=== PATIENT | female | born 1960 | race Caucasian/White ===

== ENCOUNTER 2017-07-11 05:29 | Day surgery (SDC) | payer OTHER ==
[~2017-07-11] VITALS: Ht 157.5 cm; Wt 102.5 kg
--- NOTE | ~2017-07-11 | EKG ---
[address] [address] ELECTROCARDIOGRAM REPORT Name: CHENG TAYLOR Room #: 150-4 [facility]#: [id number] Admission: 07/11/17 Attend Phys: Binh Cueva MD Discharge: Date of : 56 Report #: [id number] THIS REPORT FOR: //name// [facility] Test Date: 2017-07-11 Test Time: 13:35:33 Pat Name: CHENG TAYLOR Department: Room: 150 4 Gender: F Senior Sales Operations Manager: RM : 1960 Requested By: Binh Cueva Order Number: [id number] MD: Abel Callejas Measurements Intervals [place] Rate: 102 P: 36 ND: 143 QRS: -30 QRSD: 92 T: 59 QT: 357 QTc: 466 Interpretive Statements Sinus tachycardia Left axis deviation Poor R wave progression Cannot rule out inferior infarct, age indeterminate Minimal ST depression, lateral leads No previous ECG available for comparison Electronically Signed On 07-12-2017 7:25:12 CDT by Abel Callejas [email or web address] <ELECTRONICALLY SIGNED> By: Abel Callejas MD, [facility] 07/12/17 07 34 34 Abel Callejas MD, [facility] /EPI
--- NOTE | ~2017-07-11 | O ---
[facility] [place] [address] [address] [place] [address] OPERATIVE REPORT Name: CHENG TAYLOR Room #: DEP [facility] Venus.#: [id number] Admission: 07/11/17 Attend Phys: Binh Cueva MD Discharge: 07/11/17 Date of : 56 Report #: [id number] THIS REPORT FOR: //name// CC: FAM unknown Binh Cueva DATE OF SERVICE: 07/11/2017 PREOPERATIVE DIAGNOSIS: Left knee medial meniscus tear. POSTOPERATIVE DIAGNOSES: 1. Left knee posterior horn medial meniscus tear. 2. Posterior horn root tear of the lateral meniscus. 3. Grade 3 chondromalacia medial femoral condyle. 4. Grade 3 chondromalacia of the patella. PROCEDURES: 1. Left knee arthroscopy with partial medial and lateral meniscectomy. 2. Chondroplasty of medial femoral condyle and patella. SURGEON: Binh Cueva MD FIRE EXTINGUISHER INSTALLER: Connie Bonilla PA-C. ANESTHESIA: LMA. TOURNIQUET TIME: 17 minutes. ESTIMATED BLOOD LOSS: 10 mL COMPLICATIONS: None. SPECIMENS: None. CONDITION UPON LEAVING THE OPERATING ROOM: Stable. INDICATIONS FOR PROCEDURE: The patient is a 56-year-old female, who has had medial-sided left knee pain. She had an MRI scan, shown to have a tear of the medial meniscus. After discussion with her, she elected for left knee arthroscopy with partial medial meniscectomy with debridement as needed. DESCRIPTION OF PROCEDURE: Risks, benefits, alternatives, complications were discussed in detail with the patient including, but not limited to risk of anesthesia, risk of damage to nerves, arteries, blood vessels, risk for infection, bleeding, risk for continued knee pain and need for reoperation. Informed consent was obtained from the patient. The left knee was appropriately [facility] [address] [place] [address] OPERATIVE REPORT Name: CHENG TAYLOR Room #: DEP [facility] Cristofer#: [id number] Admission: 07/11/17 Attend Phys: Binh Cueva MD Discharge: 07/11/17 Date of : 56 Report #: [id number] marked in the preoperative holding area. IV Ancef was given for preoperative antibiotics. She was brought to the operating room and placed in supine position on operating room table. LMA anesthesia was induced without complication. Tourniquet was placed on left thigh. Left lower extremity was prepped and draped in normal sterile fashion. Timeout was performed properly identifying the patient, the procedure as well as the instrumentation, all in the operating room were in agreement. Left lower extremity was exsanguinated, tourniquet was inflated. Tourniquet time was 17 minutes. Standard anterolateral portal was established with #11 blade through the skin. Arthroscope was introduced into the patellofemoral compartment and diagnostic arthroscopy was undertaken. Patellofemoral compartment was visualized and found to have grade 3 chondromalacia of the patella. Medial gutter was visualized and found to be without pathology. Medial compartment was visualized and medial portal was established under arthroscopic visualization. Probe was introduced in the medial compartment and there was noted to be a tear of the posterior horn of the medial meniscus and this was trimmed back to a stable rim with arthroscopic biter and smoothed back with a shaver. There was also a grade 3 chondromalacia of the medial femoral condyle and chondroplasty of this area was performed. Notch was visualized and found to have an intact anterior cruciate ligament. Lateral compartment was visualized and found to have fraying of the root of the posterior horn of the lateral meniscus that was smoothed back with oscillating shaver. Scope was placed back in the patellofemoral compartment and chondroplasty of the patella was performed. There was also grade 3 chondromalacia of the trochlear groove. After this, all fluid was drained from the knee. Knee was injected with 10 mL of 0.5% Marcaine. Incision was closed with 3-0 nylon. Soft dressing of Adaptic, 4 x 4, Webril, David wrap were applied. The patient tolerated this procedure well and went to recovery room under care of anesthesia postoperatively. <ELECTRONICALLY SIGNED> By: Binh Cueva MD 07/24/17 1148 1827 1854 Binh Cueva MD /nt
[~2017-07-11 05:29] MED LIST: CENTRUM SILVER1 EAC4 PO; FLEXERIL PO; GLUCOPHAGE XR500 MG PO; HYDROCODON-ACE1 EAC8 PO; LISINOPRIL5 MG PO; SYNTHROID50 MCG PO; VENTOLIN HFA 1818 GM INH
[2017-07-11 13:55] VITALS: BP 162/92
[2017-07-11] MEDS ORDERED: HYDROCODONE-AP1 EAC6 PO (16:00)
[2017-07-11 16:12] VITALS: BP 162/92
== END 2017-07-11 17:05 | disposition home or self-care (01) ==
LOC: OR 05:29 → TBA 05:30 → OR 06:50
DX: M23.322 Other meniscus derangements, posterior horn of medial meniscus, left knee (principal); M23.252 Derangement of posterior horn of lateral meniscus due to old tear or injury, left knee; M94.262 Chondromalacia, left knee; I10 Essential (primary) hypertension; E11.9 Type 2 diabetes mellitus without complications; E03.9 Hypothyroidism, unspecified; Z90.710 Acquired absence of both cervix and uterus; Z98.890 Other specified postprocedural states; Z88.0 Allergy status to penicillin; Z88.2 Allergy status to sulfonamides; Z88.8 Allergy status to other drugs, medicaments and biological substances; Z79.899 Other long term (current) drug therapy; Z79.891 Long term (current) use of opiate analgesic
CPT/HCPCS: 50010; 50101; 50405; 51038; 54170; 56526; 57103; 62110; 62900; 70005

== ENCOUNTER 2018-03-25 06:15 | Inpatient (IN) | payer OTHER ==
[2018-03-19 09:20] LABS: HEMATOCRIT 40.5 % (37.0-47.0); HEMOGLOBIN 13.8 gm/dL (12.0-15.0); MCH 30.6 pg (26.0-34.0); MCHC 34.1 g/dL (28.0-37.0); MCV 89.7 fL (80.0-100.0); RBC 4.51 mil/uL (4.20-5.00); RDW 13.1 % (10.5-14.5); WBC 7.5 thou/uL (4.0-11.0)
[2018-03-19 09:29] LABS: ALBUMIN 3.8 g/dL (3.4-5.0); CALCIUM 9.7 mg/dL (8.5-10.1); CREATININE 1.1 mg/dL (0.6-1.0); POTASSIUM 4.5 mmol/L (3.5-5.1)
[2018-03-19 09:32] LABS: PROTIME 10.4 Seconds (9.3-11.4)
[2018-03-19 09:33] LABS: URINE BILIRUBIN NEGATIVE (Negative); URINE BLOOD NEGATIVE (Negative); URINE CLARITY CLEAR; URINE COLOR YELLOW; URINE GLUCOSE-RANDOM* NEGATIVE (Negative); URINE KETONES NEGATIVE (Negative); URINE NITRITE-REFLEX NEGATIVE (Negative); URINE PROTEIN (DIPSTICK) NEGATIVE (Negative); URINE SPECIFIC GRAVITY <= 1.005 (1.005-1.035); URINE UROBILINOGEN 0.2 E.U./dl (0.2-1.0)
[2018-03-19 09:34] LABS: URINE LEUKOCYTES-REFLEX 1+ (Negative)
[2018-03-19 09:42] LABS: SQUAMOUS 0-3 Few /LPF (0-3)
[2018-03-19 09:43] LABS: BACTERIA-REFLEX 1-9 Few /HPF (None Seen); CASTS None Seen /LPF (None Seen); CRYSTALS None Seen /LPF (None Seen); URINE RBC None Seen /HPF (0-2); URINE WBC-REFLEX 0-5 Rare /HPF (0-5)
[~2018-03-25] VITALS: Ht 157.5 cm; Wt 88.5 kg
--- NOTE | ~2018-03-25 | PATH ---
[facility] [address] [place] [address] PATHOLOGY RPT PROCEDURE Name: CHENG TAYLOR Room #: 432-P DIS IN M.R.#: [id number] Admission: 03/25/18 Date of : 56 Discharge: 03/26/18 Report #: [id number] Path Case #: [id number] [facility] Accession Number: [id number] . 01 Material submitted: . LEFT FEMORAL HEAD . 01 Clinical history: . Left hip OA . 02 Diagnosis: Bone, left femoral head, total hip replacement: - Marked erosion as well as areas of eburnation in addition to reactive chondro-osseous tissue, consistent with the provided history of osteoarthritis. - Marrow space showing trilineage hematopoiesis. . (IUV:mml; 03/27/18) QLM/03/27/2018 . 02 Electronically signed: . Idalia Vaughn MD, Pathologist NPI- [id number] . 01 Gross description: . Received in formalin labeled "Cheng Taylor, left femoral head," is a femoral head measuring 4.1 x 4.1 x 5.4 cm in greatest dimensions. The articular surface is smooth to granular and pale koenig to light brown in appearance, displaying no gross evidence of eburnation. Sectioning reveals cancellous, pale yellow to largely hemorrhagic cut surfaces. The specimen is submitted representatively in cassette A1, following decalcification. (DAC; 03/26/2018) XDC/XDC . 02 Pathologist provided ICD-10: M16.12 . 02 CPT . 042256, 436000 Specimen Comment: A courtesy copy of this report has been sent to Specimen Comment: [phone], . Specimen Comment: Report sent to / DR PLATT Specimen Comment: A duplicate report has been generated due to demographic updates. Performed at: [address] [address] PATHOLOGY RPT PROCEDURE Name: CHENG TAYLOR Room #: [address] [place] [address] IN M.R.#: [id number] Admission: 03/25/18 Date of : 56 Discharge: 03/26/18 Report #: [id number] Path Case #: [id number] [address] [facility] [address], [place], [place] [id number] MD Mando Mello MD Phone: [phone] Performed at: [address] [id number] MD Idalia Vaughn MD Phone: [phone]
--- NOTE | ~2018-03-25 | O ---
[facility] [address] [address] [place] [address] OPERATIVE REPORT Name: CHENG TAYLOR Room #: 150-5 ADM IN M.R.#: [id number] Admission: 03/25/18 Attend Phys: Binh Cueva MD Discharge: Date of : 56 Report #: [id number] THIS REPORT FOR: //name// CC: QUINN PLATT Physician staff Binh Cueva DATE OF SERVICE: 03/25/2018 PREOPERATIVE DIAGNOSIS: Left femoral head avascular necrosis. POSTOPERATIVE DIAGNOSIS: Left femoral head avascular necrosis. PROCEDURE: Left total hip arthroplasty. SURGEON: Binh Cueva MD. BARREL LOADER AND CLEANER: Connie Bonilla PA-C. INDICATIONS FOR BARREL LOADER AND CLEANER: Throughout the case, extensive retraction and manipulation of the hip was required. This was afforded to me by my ophthalmic surgical assistant. This included dislocation and reduction of the hip. ANESTHESIA: General endotracheal. IMPLANTS: Martin [employer] Nephew size 12 high offset Synergy press fit stem, a size 48 R3 acetabular cup with one acetabular screw and a size 32 -3 Oxinium head. ESTIMATED BLOOD LOSS: 50 mL. COMPLICATIONS: None. SPECIMENS: None. CONDITION UPON LEAVING THE OPERATING ROOM: Stable. 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 She had failed conservative measures for this and after discussion with her, she elected for left total hip arthroplasty. DESCRIPTION OF PROCEDURE: Risks, benefits, alternatives, complications were discussed in detail with the patient including but not limited to risk of anesthesia, risk of damage to nerves, arteries, blood vessels, risk for infection, bleeding, risk for leg length discrepancy, instability and need for reoperation. Informed consent was obtained from the patient. Left hip was [facility] [address] [place] [address] OPERATIVE REPORT Name: CHENG TAYLOR Room #: 150-5 ADM IN M.R.#: [id number] Admission: 03/25/18 Attend Phys: Binh Cueva MD Discharge: Date of : 56 Report #: [id number] appropriately marked in the preoperative holding area. IV clindamycin was given for preoperative antibiotics. She was brought to the operating room and placed in supine position on operating room table. General endotracheal anesthesia was induced without complication. She was then placed in the right lateral decubitus position with the left hip uppermost. Left hip and lower extremity were prepped and draped in normal sterile fashion. Timeout was performed properly identifying the patient and procedure as well as the instrumentation and implants. All in the operating room were in agreement. Standard posterior approach to the hip was made with 10 blade through the skin. Dissection was taken down sharply to the fascia and deep flaps were developed medially and laterally. Fresh 10 blade was used to make a fascial incision. This was taken proximally and distally with curved Sheehan scissor. Charnley retractor was placed and trochanteric bursa was taken down with Bovie cautery. Piriformis tendon was identified, tagged and taken down with Bovie. Short external rotators were also taken down with Bovie cautery. Capsulotomy was made and capsule ends were tagged for later repair. The hip was dislocated and a femoral neck cut 1 cm proximal to lesser trochanter based on preoperative templating was made with the oscillating saw. Femoral head was removed and sent to pathology. Deep acetabular retractors were placed and the labrum was removed sharply. Pulvinar was removed with Bovie cautery. Acetabulum was then sequentially reamed up to a size 48, at which point, there was excellent bleeding cancellous bone. A final size 48 R3 acetabular cup was placed and seated. One acetabular screw was placed for backup fixation. Polyethylene liner for 32 head was placed. Attention was then turned to the femur. This was reamed and broached up to a size 12, at which point the size 12 broach was stable. This was trialed with a high offset neck and a 32+0 head. Hip was reduced, taken through range of motion, found to be stable, found to have equal leg lengths. Hip was dislocated. The broach was removed, and a final size 12 high offset Synergy press fit stem was placed. This did not seat quite as far as the broach did, yet was stable. This was thus trialed with a 32-3 head. Hip was reduced, taken through range of motion, found to be stable, found to have equal leg lengths. Hip was dislocated one last time, trial head was removed, and a final size 32 -3 Oxinium head was placed. Hip was reduced, taken through range of motion, found to be stable, found to have equal leg lengths. Hip was thoroughly irrigated with normal saline. A periarticular injection consisting of morphine, ropivacaine, epinephrine and Toradol was placed around the hip joint capsule. A gram of vancomycin was placed deep in the joint. The capsule and piriformis were repaired with 0 FiberWire. Fascia was closed with 0 Vicryl, skin was closed with 2-0 Vicryl, 3-0 Monocryl. Dermabond and a RAVI dressing were applied. The patient tolerated this procedure well and went to recovery room under care of Anesthesia postoperatively. <ELECTRONICALLY SIGNED> By: Binh Cueva MD 03/25/18 1713 1455 1614 Binh Cueva MD /nt
[~2018-03-25 06:15] MED LIST changes: +ALEVE220 MG PO; +CALCIUM 500 +1 EAC5 PO; +HYDROCODONE-AP1 EAC6 PO; +MAGOX 400400 MG PO
[2018-03-25 12:24] VITALS: BP 136/49
[2018-03-25 20:35] VITALS: BP 118/72
[2018-03-26 06:45] LABS: HEMATOCRIT 34.2 % (37.0-47.0); HEMOGLOBIN 11.8 gm/dL (12.0-15.0); MCH 30.6 pg (26.0-34.0); MCHC 34.5 g/dL (28.0-37.0); MCV 88.7 fL (80.0-100.0); RBC 3.85 mil/uL (4.20-5.00); RDW 12.9 % (10.5-14.5); WBC 16.1 thou/uL (4.0-11.0)
[2018-03-26] MEDS ORDERED: NEURONTIN 300300 M1 PO (12:25)
[2018-03-26] MEDS ORDERED: TRI-BUFFERED A325 M1 PO (12:25)
[2018-03-26 13:58] VITALS: BP 105/71
[2018-03-26 15:47] VITALS: BP 105/71
[2018-03-26 15:49] VITALS: BP 105/71
== END 2018-03-26 14:46 | disposition home or self-care (01) | DRG 470 ==
LOC: PRE 06:15 → TBA 07:17 → PRE 12:18 → 4E 17:35
PROVIDERS: Orthopaedic Surgery
PROC: 0SRB06A Replacement of Left Hip Joint with Oxidized Zirconium on Polyethylene Synthetic Substitute, Uncemented, Open Approach (ICD-10-PCS; principal; 2018-03-25)
DX: M87.852 Other osteonecrosis, left femur (principal); Z79.82 Long term (current) use of aspirin; Z79.899 Other long term (current) drug therapy; Z88.0 Allergy status to penicillin; Z88.2 Allergy status to sulfonamides; Z88.8 Allergy status to other drugs, medicaments and biological substances
CPT/HCPCS: 10783; 50010; 50101; 50382; 50414; 51771; 53000; 53078; 53368; 54118; 56524; 56527; 56528; 56530; 57095; 57103; 62110; 62900; 70005

== ENCOUNTER 2018-11-13 05:27 | Inpatient (IN) | payer OTHER ==
[2018-10-30 12:47] LABS: HEMATOCRIT 41.3 % (37.0-47.0); MCH 29.4 pg (26.0-34.0); MCHC 33.9 g/dL (28.0-37.0); RBC 4.75 mil/uL (4.20-5.00); RDW 13.2 % (10.5-14.5); WBC 8.2 thou/uL (4.0-11.0)
[2018-10-30 12:48] LABS: URINE BILIRUBIN NEGATIVE (Negative); URINE BLOOD NEGATIVE (Negative); URINE CLARITY CLEAR; URINE COLOR YELLOW; URINE GLUCOSE-RANDOM* NEGATIVE (Negative); URINE KETONES NEGATIVE (Negative); URINE LEUKOCYTES-REFLEX TRACE (Negative); URINE NITRITE-REFLEX NEGATIVE (Negative); URINE PROTEIN (DIPSTICK) NEGATIVE (Negative); URINE SPECIFIC GRAVITY <= 1.005 (1.005-1.035); URINE UROBILINOGEN 0.2 E.U./dl (0.2-1.0)
[2018-10-30 13:02] LABS: ALBUMIN 4.1 g/dL (3.4-5.0); CALCIUM 9.8 mg/dL (8.5-10.1)
[2018-10-30 13:03] LABS: PROTIME 10.2 Seconds (9.3-11.4)
--- NOTE | 2018-11-03 17:49 | EKG ---
[facility] [place] [address] [place] [address] ELECTROCARDIOGRAM REPORT Name: CHENG TAYLOR Room #: PRE IN ..#: [id number] ������������������ Admission: ������������������ Attend Phys: Binh Cueva MD Discharge: ������������������ Date of : 56 Report #: [id number] ����������������������������������������������������������������� [id number] THIS REPORT FOR: //name// [facility] Test Date: 2018-10-30 Test Time: 12:52:50 Pat Name: CHENG TAYLOR Department: Room: Gender: F Pan Helper: kitty : 1960 Requested By: Binh Cueva Order Number: [id number] MD: Abel Callejas Measurements Intervals [place] Rate: 67 P: 24 MN: 157 QRS: -19 QRSD: 99 T: 29 QT: 430 QTc: 454 Interpretive Statements Sinus rhythm Possible Inferior infarct, old Nonspecific T wave abnormality Compared to ECG 07/11/2017 13:35:33 Sinus tachycardia no longer present ST and T wave abnormality is less pronounced Electronically Signed On 11-03-2018 17:49:43 CDT by Abel Callejas [email or web address] ��������������������������������������������� <ELECTRONICALLY SIGNED> ���������������������������������������� By: Abel Callejas MD, [facility] ��������������������������������������������� 11/03/18 1749 1252 1252 Abel Callejas MD, FAC /EPI
[~2018-11-13] VITALS: Ht 157.5 cm; Wt 92.1 kg
--- NOTE | ~2018-11-13 | O ---
[facility] [place] [address] [place] [address] OPERATIVE REPORT Name: CHENG TAYLOR Room #: 432-P [facility] IN M.R.#: [id number] Admission: 11/13/18 ������������������ Attend Phys: Binh Cueva MD Discharge: ������������������ Date of : 56 Report #: [id number] THIS REPORT FOR: //name// CC: Binh Grajeda DATE OF SERVICE: 11/13/2018 PREOPERATIVE DIAGNOSIS: Right hip osteoarthritis with avascular necrosis. POSTOPERATIVE DIAGNOSIS: Right hip osteoarthritis with avascular necrosis. PROCEDURE: Right total hip arthroplasty. SURGEON: Binh Cueva MD. CLOSING AGENT: Connie Bonilla PA-C. INDICATIONS FOR CLOSING AGENT: Throughout the case, extensive retraction and manipulation of the hip was required. This was afforded to me by my daycare assistant. ANESTHESIA: General. IMPLANTS: Martin [employer] Nephew size 11 high offset Synergy press fit stem, a size 48 R3 acetabular cup with one acetabular screw and a size 32+0 Oxinium head. ESTIMATED BLOOD LOSS: 100 mL. COMPLICATIONS: None. SPECIMENS: None. CONDITION UPON LEAVING THE OPERATING ROOM: Stable. INDICATIONS FOR PROCEDURE: The patient is a 58-year-old female with right hip avascular necrosis. She had failed conservative treatment for this and after discussion with her, she elected for right total hip arthroplasty. DESCRIPTION OF PROCEDURE: Risks, benefits, alternatives, complications were discussed in detail with the patient including but not limited to risk of anesthesia; risk of damage to nerves, arteries, blood vessels; risk for infection, bleeding; risk for leg length discrepancy, instability and need for reoperation. Informed consent was obtained from the patient. The right hip was appropriately marked in the preoperative holding area. IV Ancef was given for preoperative antibiotics. She was brought to the operating room and placed in supine position on the operating room table. General anesthesia was induced [address] [address] OPERATIVE REPORT Name: CHENG TAYLOR Room #: 432-P [facility] IN M.R.#: [id number] Admission: 11/13/18 ������������������ Attend Phys: Binh Cueva MD Discharge: ������������������ Date of : 56 Report #: [id number] without complication. She was placed on the left lateral decubitus position with the right hip uppermost. Right hip and lower extremity were prepped and draped in normal sterile fashion. Timeout was performed properly identifying the patient, procedure as well as the instrumentation and implants. All in the operating room were in agreement. Standard posterior approach to the hip was made with 10 blade through the skin. Dissection was taken down to the fascia with Bovie cautery. Cobian elevator was used to clean off the fascia. Fresh 10 blade was used to make a fascial incision. This was taken proximally and distally with curved Sheehan scissor. Charnley retractor was placed. Trochanteric bursa was taken down with Bovie cautery. Piriformis tendon was identified, tagged and taken down with Bovie. Short external rotators were also taken down with Bovie cautery. Capsulotomy was made and capsule ends were tagged for later repair. Hip was dislocated and a femoral neck cut was made 1 cm proximal to lesser trochanter based on preoperative templating. The femoral head was removed. Deep acetabular retractors were placed. Labrum was removed sharply. Pulvinar was removed with Bovie cautery. Acetabulum was then sequentially reamed up to a size 48 at which point, there was excellent bleeding cancellous bone. This was trialed with a 47 socket and found to have a good fit. A final size 48 R3 acetabular cup was placed and seated. One acetabular screw was placed for backup fixation and a polyethylene liner for 32 head was placed. Attention was turned to the femur. This was reamed and broached up to a size 11, at which point, the size 11 broach was stable. This was trialed with a high offset neck with a 32+0 head. Hip was reduced, taken through range of motion, found to be stable, found to have equal leg lengths. Hip was dislocated. The broach was removed and final size 11 high offset Synergy press fit stem was placed and seated. This was trialed again with a 32+0 head. Hip was reduced, taken through range of motion, found to be stable, found to have equal leg lengths. Hip was reduced one last time and a final size 32+0 Oxinium head was placed. Hip was reduced, taken through range of motion, found to be stable, found to have equal leg lengths. Hip was thoroughly irrigated with normal saline. A periarticular injection consisting of morphine, ropivacaine, epinephrine and Toradol was placed around the hip joint capsule. A gram of vancomycin was placed deep in the joint. The capsule and piriformis were repaired with 0 FiberWire. Fascia was closed with 0 Vicryl. Skin was closed with 2-0 Vicryl and 3-0 Monocryl. Dermabond and a RAVI dressing was applied. The patient tolerated this procedure well and went to the recovery room under care of anesthesia postoperatively. ��������������������������������������������� ���������������������������������������� By: ��������������������������������������������� 1227 1322 Binh Cueva MD /nt
[~2018-11-13 05:27] MED LIST changes: +HAIR, SKIN & N1 EAC3 PO; +NEURONTIN 300300 M1 PO; +TRAMADOL 50 MG50 MG PO; +TRI-BUFFERED A325 M1 PO
[2018-11-13 14:10] VITALS: BP 145/72
--- NOTE | 2018-11-13 18:44 | NUR ---
58 YO FEMALE ADMITTED FROM PACU, IV INTACT IN L HAND. RAVI DRSG TO RT HIP INTACT. FAMILY AT BEDSIDE. ORIENTED PT TO ROOM/CALL LIGHT.
[2018-11-13 20:00] VITALS: BP 120/64
[2018-11-13 21:00] VITALS: BP 105/64
[2018-11-13 22:00] VITALS: BP 113/63
[2018-11-13 23:00] VITALS: BP 123/72
[2018-11-14 00:20] VITALS: BP 122/74
--- NOTE | 2018-11-14 02:57 | NUR ---
ASSUMED CARE OF PT @1900 PT ASSESSED AT START OF SHIFT A&OX4 AT THIS SHIFT AND POST OP VITALS STARTED ON. RAVI DRESSING TO RT HIP INTACT AND ICE PACK IN PLACE. UP WITH ASSITX1 TO THE BATHROOM PER PT REQUEST AND DR ORDERS. PT DRINKING ADEQUATE PO FLIUDS AND PEEING ADEQUETLY. URINE FREQ AND URGENCY NOTED AND LIGHT COLOR URINE OBSERVED. PT REFUSED IV D5 1/2 FLUID INTAKE STATED DOESNT WANT TO PEE ALOT AND STATES SHES DRINKING ADEQUET FLIUDS. THIS NURSE PERFORMED EDUCATION AND PT RECEIVED 300ML OF D5 1/2 AND ALLOWS IT TO RUN WITH ABX. POC DONE AND FALL PREC IN PLACE WILL CONTINUE TO MONITOR TILL EOS
[2018-11-14 04:18] VITALS: BP 109/61
[2018-11-14 06:26] LABS: HEMATOCRIT 38.5 % (37.0-47.0); HEMOGLOBIN 12.7 gm/dL (12.0-15.0); MCH 28.7 pg (26.0-34.0); MCHC 33.1 g/dL (28.0-37.0); MCV 86.8 fL (80.0-100.0); RBC 4.44 mil/uL (4.20-5.00); RDW 13.5 % (10.5-14.5); WBC 17.5 thou/uL (4.0-11.0)
[2018-11-14 08:02] VITALS: BP 125/70
[2018-11-14] MEDS ORDERED: ASPIR 8181 MG PO (11:41)
[2018-11-14 12:01] VITALS: BP 100/48
[2018-11-14 12:05] VITALS: BP 100/48
--- NOTE | 2018-11-14 12:50 | NUR ---
dc instructions reviewed-states understanding DENIES QUESTIONS OR CONCERNS. DISCHARGED ACCOMPNIED BY VIA WHEECHAIR
--- NOTE | 2018-11-14 15:25 | NUR ---
PATIENT DISCHARGED PRIOR TO OT EVALUATION
== END 2018-11-14 13:35 | disposition home or self-care (01) | DRG 470 ==
LOC: 4E 05:27 → TBA 05:27 → PRE 05:56 → 4E 18:18 → ENTRNSPT 11-14 12:12 → EDTRNSPTSTS 11-14 12:14 → 4E 11-14 13:35
PROVIDERS: ADMIT Orthopaedic Surgery
PROC: 0SR906A Replacement of Right Hip Joint with Oxidized Zirconium on Polyethylene Synthetic Substitute, Uncemented, Open Approach (ICD-10-PCS; principal; 2018-11-13)
DX: M16.11 Unilateral primary osteoarthritis, right hip (principal); M87.851 Other osteonecrosis, right femur; E66.01 Morbid (severe) obesity due to excess calories; I10 Essential (primary) hypertension; Z88.0 Allergy status to penicillin; Z88.2 Allergy status to sulfonamides; Z88.8 Allergy status to other drugs, medicaments and biological substances; Z68.37 Body mass index [BMI] 37.0-37.9, adult
CPT/HCPCS: 10783; 50010; 50101; 50382; 50414; 51226; 53000; 53078; 53368; 54118; 56460; 56524; 56527; 56528; 56530; 57095; 57103; 62110; 62900; 70005

== ENCOUNTER → 2018-12-02 | Day surgery (SDC) | payer OTHER ==
[~2018-12-02] VITALS: Ht 157.5 cm; Wt 86.2 kg
[~2018-12-02] MED LIST changes: +ASPIR 8181 MG PO; +NORCO 5-325 TA1 EAC1 PO
--- NOTE | ~2018-12-02 | O ---
[facility] [place] [address] OPERATIVE REPORT Name: CHENG TAYLOR Room #: REG [facility] M..#: [id number] Admission: 12/02/18 Attend Phys: Binh Cueva MD Discharge: Date of : 56 Report #: [id number] THIS REPORT FOR: //name// CC: Binh Grajeda DATE OF SERVICE: 12/02/2018 PREOPERATIVE DIAGNOSES: Right total hip arthroplasty, postoperative hematoma. POSTOPERATIVE DIAGNOSES: Right total hip arthroplasty, postoperative hematoma. PROCEDURE: Evacuation right hip hematoma. SURGEON: Binh Cueva MD. TUBE FITTER: None. ANESTHESIA: LMA. COMPLICATIONS: None. SPECIMENS: None. CONDITION UPON LEAVING THE OPERATING ROOM: Stable. INDICATIONS FOR PROCEDURE: The patient is about 2-1/2 weeks out from a right total hip arthroplasty. Postoperative visit last week, she had a large palpable hematoma that was beginning to be painful. After discussion with her, she elected for evacuation right hip hematoma. DESCRIPTION OF PROCEDURE: Risks, benefits, alternatives, complications were discussed in detail with the patient including but not limited to risk of anesthesia, risk of damage to nerves, arteries, blood vessels, risk for infection, bleeding, risk for continued hip pain and need for reoperation. Informed consent was obtained from the patient. The right hip appropriately marked in the preoperative holding area. IV Ancef was given for preoperative antibiotics. She was brought to the operating room and placed in supine position on operating room table. LMA anesthesia was induced without complications. She was then placed in the left lateral decubitus position with right hip uppermost. Right hip and lower extremity were prepped and draped in normal sterile fashion. Timeout was performed, properly identifying the patient and procedure as well as instrumentation. All in the operating room were in agreement. The previous incision was then opened with a #10 blade. Upon entering the adipose layer, a large hematoma was evacuated. This potential space was irrigated out. Fascial closure was intact. A deep drain was placed. [address] [address] OPERATIVE REPORT Name: CHENG TAYLOR Room #: REG [facility].#: [id number] Admission: 12/02/18 Attend Phys: Binh Cueva MD Discharge: Date of : 56 Report #: [id number] The adipose layer was closed with 0 Vicryl, skin was closed with 2-0 Vicryl and skin staple and a RAVI dressing was applied. The patient tolerated this procedure well and went to recovery room under care of anesthesia postoperatively. By: 1316 1346 Binh Cueva MD /nt
== END | disposition home or self-care (01) ==
LOC: OR 09:39
DX: M96.840 Postprocedural hematoma of a musculoskeletal structure following a musculoskeletal system procedure (principal); Y83.8 Other surgical procedures as the cause of abnormal reaction of the patient, or of later complication, without mention of misadventure at the time of the procedure; Z96.643 Presence of artificial hip joint, bilateral; I10 Essential (primary) hypertension; E03.9 Hypothyroidism, unspecified; Z90.710 Acquired absence of both cervix and uterus; Z98.890 Other specified postprocedural states; Z79.899 Other long term (current) drug therapy; Z88.0 Allergy status to penicillin; Z88.2 Allergy status to sulfonamides; Z88.8 Allergy status to other drugs, medicaments and biological substances; Z79.82 Long term (current) use of aspirin
CPT/HCPCS: 50010; 50101; 50382; 50414; 51412; 53078; 56528; 57095; 57103; 57116; 62110; 62900; 70005

== ENCOUNTER → 2020-03-05 | Day surgery (SDC) | payer OTHER ==
[~2020-03-05] VITALS: Ht 157.5 cm; Wt 97.5 kg
[~2020-03-05] MED LIST changes: +CYCLOBENZAPRINE10 MG PO; +FUROSEMIDE 20 M20 M1 PO; +LISINOPRIL10 MG PO; +METFORMIN HCL500 MG PO; +SYNTHROID75 MCG PO
[2020-03-05 11:56] LABS: HEMATOCRIT 38.3 % (37.0-47.0); HEMOGLOBIN 12.7 gm/dL (12.0-15.0); MCH 28.8 pg (26.0-34.0); MCV 87.1 fL (80.0-100.0); RBC 4.4 mil/uL (4.20-5.00); WBC 7.6 thou/uL (4.0-11.0)
[2020-03-05 12:05] LABS: URINE BILIRUBIN NEGATIVE (Negative); URINE BLOOD NEGATIVE (Negative); URINE CLARITY CLEAR; URINE COLOR YELLOW; URINE GLUCOSE-RANDOM* NEGATIVE (Negative); URINE KETONES NEGATIVE (Negative); URINE LEUKOCYTES-REFLEX NEGATIVE (Negative); URINE NITRITE-REFLEX NEGATIVE (Negative); URINE PROTEIN (DIPSTICK) NEGATIVE (Negative); URINE SPECIFIC GRAVITY <= 1.005 (1.005-1.035); URINE UROBILINOGEN 0.2 E.U./dl (0.2-1.0)
[2020-03-05 12:13] LABS: PROTIME 10.3 Seconds (9.3-11.4)
[2020-03-05 12:19] LABS: ALBUMIN 3.9 g/dL (3.4-5.0); CALCIUM 9.4 mg/dL (8.5-10.1); POTASSIUM 4.5 mmol/L (3.5-5.1)
[2020-03-06 00:06] LABS: GLYCOHEMOGLOBIN (HGB A1C) 6.3 % (4.8-5.6)
== END | disposition home or self-care (01) ==
LOC: OR 10:56
PROVIDERS: ATTEND Orthopaedic Surgery
DX: Z01.812 Encounter for preprocedural laboratory examination (principal); M16.11 Unilateral primary osteoarthritis, right hip; E11.9 Type 2 diabetes mellitus without complications; E03.9 Hypothyroidism, unspecified; Z98.890 Other specified postprocedural states; Z79.899 Other long term (current) drug therapy; Z90.710 Acquired absence of both cervix and uterus; Z20.828 Contact with and (suspected) exposure to other viral communicable diseases; Z88.0 Allergy status to penicillin; Z88.2 Allergy status to sulfonamides; Z88.8 Allergy status to other drugs, medicaments and biological substances

== ENCOUNTER → 2020-03-05 | Outpatient (CLI) | payer OTHER | LOC: LAB 12:37 | PROVIDERS: ATTEND Orthopaedic Surgery | DX: Z20.828 Contact with and (suspected) exposure to other viral communicable diseases (principal) ==

== ENCOUNTER 2020-03-15 06:10 | Observation (INO) | payer OTHER ==
[~2020-03-15] VITALS: Ht 157.5 cm; Wt 97.5 kg
--- NOTE | ~2020-03-15 | O ---
[facility] [place] [address] OPERATIVE REPORT Name: CHENG TAYLOR Room #: 446-P [facility] [place]#: [id number] Admission: 03/15/20 Attend Phys: Binh Cueva MD Discharge: 03/15/20 Date of : 56 Report #: [id number] THIS REPORT FOR: cc: Quentin Grajeda MD, Terry A. MD Abraham,Binh Urias MD ~ CC: Binh Grajeda DATE OF SERVICE: 03/15/2020 PREOPERATIVE DIAGNOSIS: Left knee medial compartment osteoarthritis. POSTOPERATIVE DIAGNOSIS: Left knee medial compartment osteoarthritis. PROCEDURE: Left medial compartment knee arthroplasty using Navio robotic assistance. SURGEON: Binh Cueva MD. MEDICAL EXAMINER: Connie Bonilla PA-C. INDICATIONS FOR MEDICAL EXAMINER: Throughout the case, extensive retraction and manipulation of the knee was required. This was afforded to me by my assistant corporate secretary. ANESTHESIA: LMA with an adductor canal block. IMPLANTS: [employer] size 3 Journey II BCS Oxinium medial femoral component, size 1 tibia and a size 9 polyethylene. TOURNIQUET TIME: 48 minutes. ESTIMATED BLOOD LOSS: 25 mL. COMPLICATIONS: None. SPECIMENS: None. CONDITION UPON LEAVING THE OPERATING ROOM: Stable. INDICATIONS FOR PROCEDURE: The patient is a 59-year-old female with medial-sided left knee osteoarthritis. She had failed conservative measures for this and after discussion with her, she elected for left medial compartment knee arthroplasty. DESCRIPTION OF PROCEDURE: Risks, benefits, alternatives, complications were [facility] [address] [place] [address] OPERATIVE REPORT Name: CHENG TAYLOR [facility]: [facility] [id number] Admission: 03/15/20 Attend Phys: Binh Cueva MD Discharge: 03/15/20 Date of : 56 Report #: [id number] discussed in detail with the patient including but not limited to risk of anesthesia, risk of damage to nerves, arteries, blood vessels, risk for infection, bleeding, risk for continued knee pain, need for reoperation. Informed consent was obtained from the patient. Left knee was appropriately marked in the preoperative holding area. IV Ancef was given for preoperative antibiotics. Adductor canal block was placed by Anesthesia. She was brought to the operating room and placed in the supine position on the operating room table. LMA anesthesia was induced without complication. Tourniquet was placed on the left thigh. Left lower extremity was prepped and draped in normal sterile fashion. Timeout was performed properly identifying the patient and procedure as well as the instrumentation. All in the operating room were in agreement. Left lower extremity was exsanguinated, tourniquet was inflated. Tourniquet time was 48 minutes. Standard approach to the medial knee was made with a 10 blade through the skin. Dissection was taken down to the fascia. Deep flaps were developed medially and laterally. Fresh 10 blade was used to make a medial parapatellar arthrotomy and the knee was inspected. There was severe medial compartment osteoarthritis. Lateral compartment was well maintained. ACL was intact. 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 It was decided to proceed with medial knee arthroplasty. Reference pins were placed in the femur and the tibia. The knee was then digitally mapped using the [employer] robotic system. We sized the size 3 femur with a size 1 tibia and a size 9 spacer. After acceptance of the intraoperative plan, the femoral and tibial resections were made with the Navio bur. Remainder of the meniscus was removed with Bovie cautery. Tibia was cleaned up and sized, found to be a size 1. A size 1 tibial trial was placed and drilled. A size 3 femoral trial was placed and this was trialed with a size 8 and then a size 9 polyethylene and size 9 demonstrated 1 to 1.5 millimeter of laxity medially throughout range of motion of the knee. Trial components were removed. Bony ends were thoroughly irrigated with normal saline. A final size 1 tibia and a size 3 Journey II BCS Oxinium medial femoral component were cemented in place using standard cementation techniques. While the cement cured, a periarticular injection consisting of morphine, ropivacaine, epinephrine and Toradol was placed around the knee joint capsule. After the cement cured, the tourniquet was deflated. Hemostasis was obtained with Bovie cautery. Final size 9 polyethylene was placed. A gram of vancomycin was placed deep in the joint. Fascia was closed with 0 Vicryl, skin was closed with 2-0 Vicryl, skin staple and a RAVI dressing was applied. The patient tolerated this procedure well and went to recovery room under care of anesthesia postoperatively. By: [id number] Binh Cueva MD /sarah
[2020-03-15 07:12] VITALS: BP 157/99
[2020-03-15 16:09] VITALS: BP 157/99
== END 2020-03-15 16:15 | disposition home or self-care (01) ==
LOC: OR 06:10 → TBA 06:10 → OR 09:15 → 4S 11:37 → OR 11:37 → 4S 16:15
PROVIDERS: ADMIT Orthopaedic Surgery; ATTEND Orthopaedic Surgery
DX: M17.12 Unilateral primary osteoarthritis, left knee (principal); M87.852 Other osteonecrosis, left femur; M87.851 Other osteonecrosis, right femur; Z79.899 Other long term (current) drug therapy
CPT/HCPCS: 50010; 50101; 50415; 50954; 51130; 51225; 51320; 51412; 53078; 53370; 56527; 56528; 57095; 57103; 57110; 57127; 57180; 62110; 62900; 64039; 70005